=== PATIENT | male | born 1990 | race Two or more races ===

== ENCOUNTER 2019-10-02 23:56 | Emergency (ER) | payer OTHER, SELFPAY ==
[~2019-10-02] VITALS: Ht 182.9 cm; Wt 87.0 kg
[2019-10-03 00:02] VITALS: BP 127/85
--- NOTE | 2019-10-03 00:25 | NUR ---
PT RESTING IN VIEW OF THE NURSES STATION, NO COMPLAINTS
--- NOTE | 2019-10-03 01:22 | NUR ---
PT SLEEPING, CHEST RISE AND FALL OBSERVED, NO COMPLAINTS
--- NOTE | 2019-10-03 02:32 | NUR ---
PT ROUSABLE TO VOICE, NO COMPLAINTS
--- NOTE | 2019-10-03 03:28 | NUR ---
PT ON CELL PHONE, TRYING TO REACH FRIENDS, OFFERED HELP TO GET HOME, DECLINED. PT AMBULATES WITH STEADY GAIT.
== END 2019-10-03 03:32 | disposition home or self-care (01) ==
LOC: ED 10-03 03:26
DX: F10.120 Alcohol abuse with intoxication, uncomplicated (principal); Y90.9 Presence of alcohol in blood, level not specified
CPT/HCPCS: 99283